=== PATIENT | female | born 1985 | race Caucasian/White ===

== ENCOUNTER 2018-02-28 06:02 | Day surgery (SDC) | payer OTHER ==
[~2018-02-28 06:02] MED LIST: ACETAMINOPHEN 1,000 MG/100 ML BTL IV ONE
[2018-02-28] MEDS ORDERED: HYDROCODONE/APAP 5/325MG TABLET PO ONE (06:03)
[2018-02-28] MEDS ORDERED: PROPOFOL 10 MG/ML VIAL IV ONE (06:03)
[2018-02-28] MEDS ORDERED: SEVOFLURANE 250 ML INH ONE (06:03)
[2018-02-28] MEDS ORDERED: MIDAZOLAM HCL 2MG/2ML VIAL IV ONE (06:03)
[2018-02-28] MEDS ORDERED: BUPIVACAINE 0.25% W/EPI MPF 30ML VIAL IVP ONE (06:03)
[2018-02-28] MEDS ORDERED: FENTANYL PF 100MCG/2ML VIAL IV ONE (06:03)
[2018-02-28] MEDS ORDERED: ONDANSETRON HCL IV 4 MG/2 ML VIAL IVP ONE (06:03)
[2018-02-28] MEDS ORDERED: KETOROLAC 30 MG/ML VIAL IVP ONE (06:03)
--- NOTE | 2018-02-28 12:50 | Operative Note ---
DATE OF SURGERY: 02/28/2018 Surgeon: Rodrigue Stern DO PREOPERATIVE DIAGNOSES: 1. Chondromalacia of the right knee. 2. Possible torn medial meniscus, right knee. POSTOPERATIVE DIAGNOSIS: Chondromalacia of the lateral tibial plateau, trochlea, and patella, right knee. OPERATION: Arthroscopic chondroplasty of the patella, trochlea, and lateral tibial plateau, right knee. DESCRIPTION OF PROCEDURE: This 32-year-old female was taken to the operating room and placed in the supine position on the operating room table. General anesthetic was administered. The right lower extremity was elevated. It was exsanguinated and the tourniquet inflated to 300 mmHg. The arthroscopic knee atkins was applied, and the right knee was prepped with Hibiclens and draped in the usual sterile fashion. 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 There was also extensive degenerative disease in the trochlea with severe grade 3 changes noted with loose flaps of articular cartilage being noted there. Through an inferior medial portal, these findings were confirmed by probing the articular cartilage, and chondroplasty was subsequently performed to restore stability to the articular cartilage there. The medial compartment was entered and the articular cartilage in the medial compartment was normal. Probing of the medial meniscus did not reveal any pathology. The intracondylar notch was examined and found to be normal. The lateral compartment was entered, and there was grade 2 chondromalacia of the lateral tibial plateau at the anterior aspect of the articulating surface. The main weightbearing surface appeared to be essentially normal. The femur appeared normal. We probed the lateral meniscus as well and did not demonstrate any evidence of tearing of the lateral meniscus. Chondroplasty was subsequently performed in the anterior aspect of the lateral tibial plateau, and this was smoothed to stable articular cartilage. Reevaluation of the patellofemoral joint confirmed our findings with grade 4 lesion in the patella and grade 3 lesion noted throughout the entire trochlea as mentioned above. The joint was then copiously irrigated and suctioned. The instruments were removed. The portals infiltrated with 0.25% Marcaine with epinephrine. Sterile dressings applied. Tourniquet and knee atkins released and the patient taken to the recovery room in satisfactory condition. GROSS PATHOLOGY: This patient demonstrated a grade 4 lesion of the patella as described above. There was no normal articular cartilage remaining on the patella. A severe grade 3 lesion noted throughout the entire articulating surface of the trochlea as well with much more mild grade 2 changes noted in a relatively small area of about 0.5 to 0.75 cm in greatest dimension on the anterior aspect of the lateral tibial plateau. CC: Maddison [email or web address]
[2018-03-02] MEDS ORDERED: ACETAMINOPHEN 1,000 MG/100 ML BTL IV ONE (06:00)
== END 2018-02-28 09:10 | disposition home or self-care (01) ==
LOC: SUR 06:02
PROVIDERS: ATTEND Orthopaedic Surgery
DX: M94.261 Chondromalacia, right knee (principal); M22.41 Chondromalacia patellae, right knee
CPT/HCPCS: 81025; J1885; J2405